=== PATIENT | male | born 1970 | race Hispanic/Latino ===

== ENCOUNTER 2018-10-07 16:09 | Inpatient (IN) | payer OTHER ==
[~2018-10-07] VITALS: Ht 170.2 cm; Wt 81.6 kg
[2018-10-07] MEDS ORDERED: ONDANSETRON HCL 4 MG/2 ML VIAL ONE (16:28)
[2018-10-07] MEDS ORDERED: ACETAMINOPHEN 325 MG TAB ONE (16:29)
[2018-10-07] MEDS ORDERED: SODIUM CHLORIDE 0.9% 1000ML 3,000 ML IV ONE (16:31)
[2018-10-07 16:37] LABS: BASOPHILS % (AUTO) 0.4 % (0.0-5.0); HEMATOCRIT 37.7 % (42-54); LYMPHOCYTES % (AUTO) 36.3 % (21.0-51.0); MEAN CORPUSCULAR HEMOGLOBIN 33.9 pg (27.0-33.0); MEAN CORPUSCULAR HGB CONC 35.2 g/dL (32.0-36.0); MEAN CORPUSCULAR VOLUME 96.3 fL (79-99); MONOCYTES % (AUTO) 8.7 % (3.0-13.0); NEUTROPHILS % (AUTO) 54.6 % (40.0-77.0); NUCLEATED RED BLOOD CELLS 0.1 % (0.0-0.19); PLATELET COUNT (AUTO) 97 K/uL (130-400); RED BLOOD CELL COUNT(AUTO) 3.91 MIL/uL (4.50-6.20); RED CELL DISTRIBUTION WIDTH 13.5 % (11.0-15.5); WHITE BLOOD COUNT (AUTO) 8.4 K/uL (4.8-10.8)
[2018-10-07] MEDS ORDERED: CEFTRIAXONE SODIUM 1 GM ONE (16:45)
[2018-10-07] MEDS ORDERED: AZITHROMYCIN 500MG+NS 250ML 250 ML IV ONE (16:46)
[2018-10-07 16:52] LABS: CREATININE 1.5 mg/dL (0.5-1.5)
[2018-10-07 16:57] LABS: ALBUMIN 2.4 g/dL (3.5-5.0); BILIRUBIN,TOTAL 5.5 mg/dL (0.2-1.0); TOTAL PROTEIN, SERUM 7.9 g/dL (6.0-8.3)
[2018-10-07 17:01] LABS: APPEARANCE,URINE Clear (CLEAR); BILIRUBIN,URINE Moderate (NEGATIVE); COLOR,URINE Dark Yellow (YELLOW); GLUCOSE, URINE (UA) Negative (NEGATIVE); KETONES,URINE Negative (NEGATIVE); LEUKOCYTE ESTERASE ,URINE Trace (NEGATIVE); NITRATE,URINE Negative (NEGATIVE); OCCULT BLOOD,URINE Moderate (NEGATIVE); PROTEIN,URINE POS 1+ mg/dL (NEGATIVE)
[2018-10-07 17:08] LABS: AMPHET/METH SCREEN,URINE NEGATIVE (NEGATIVE); BARBITURATE SCREEN, URINE NEGATIVE (NEGATIVE); BENZODIAZEPINES SCREEN,URINE NEGATIVE (NEGATIVE); CANNABINOID SCREEN,URINE POSITIVE (NEGATIVE); COCAINE SCREEN,URINE NEGATIVE (NEGATIVE); OPIATE SCREEN,URINE NEGATIVE (NEGATIVE); PHENCYCLIDINE SCREEN,URINE NEGATIVE (NEGATIVE)
[2018-10-07 17:08] LABS: TROPONIN I 0.06 ng/mL (0.00-0.06)
[2018-10-07 17:17] LABS: BACTERIA,URINE Rare /HPF (None Seen); RBC,URINE None Seen /HPF (0-1); SQUAMOUS EPITHELIAL CELL,UR None Seen /HPF (0-2); WBC,URINE 0-1 /HPF (0-1)
[2018-10-07 17:27] LABS: B-TYPE NATRIURETIC PEPTIDE 94 pg/mL (0-100)
[2018-10-07] MEDS ORDERED: ASPIRIN 81MG TAB.CHEW ONE (18:06)
[2018-10-07] MEDS ORDERED: POTASSIUM BICARB/CIT AC 25 MEQ TABLET.EFF ONE (19:07)
[2018-10-07] MEDS ORDERED: IOHEXOL-350 75 ML VIAL IV ONE (19:21)
[2018-10-07] MEDS ORDERED: ZOSYN 3.375GM+NS 50ML 50 ML IV ONE ×2 (20:15→20:23)
[2018-10-07] MEDS: SODIUM CHLORIDE 0.9% 1000ML 1,000 ML IV SCH (21:33)
[2018-10-07] MEDS ORDERED: MORPHINE SULFATE 2 MG/ML 1ML SYG IV PRN (21:45)
[2018-10-07] MEDS ORDERED: MORPHINE SULFATE 4 MG/1ML SYG IV PRN (21:45)
[2018-10-07] MEDS ORDERED: MORPHINE SULFATE 2 MG/ML 1ML SYG ONE (23:18)
[2018-10-07] MEDS ORDERED: SODIUM CHLORIDE 0.9% 1000ML 1,000 ML IV ONE (23:19)
[2018-10-08] VITALS (8 sets, daily range): BP systolic 140–177; BP diastolic 92–110
--- NOTE | 2018-10-08 01:00 | NUR ---
ADMIT PT ADMITTED TO ROOM 404,AAOX3. DENIES ANY PAINS AT THIS TIME. ADMISSION CARE DONE. ADMISSION DATA BASE COMPLETED. IVF OF NS FROM ER REGULATED AT 100CC/HR. PLACED PT NPO, PT VERBALIZES UNDERSTANDING OF DIETARY RESTRICTIONS. ORIENTED TO ROOM AND UNIT. ADMISSION PACKET AND CONSENT FOR MRCP SIGNED BY PT, WITNESSED BY AUTOMOTIVE INSTRUCTOR. IN FOR MORE CARE AND MANAGEMENT. Addendum: 10/08/18 at 0201 by ANCELMO POON RN RN Amended: Links added.
[2018-10-08] MEDS ORDERED: POTASSIUM CHLORIDE 20MEQ/100ML 100 ML IV PRN (01:45)
[2018-10-08] MEDS ORDERED: LIDOCAINE HCL-MPF 1% 2ML VIAL IVP PRN (01:45)
[2018-10-08] MEDS ORDERED: POTASSIUM CHLORIDE 20MEQ/100ML 100 ML IV ONE (03:23)
[2018-10-08] MEDS ORDERED: LIDOCAINE HCL-MPF 1% 2ML VIAL ONE (03:23)
[2018-10-08] MEDS ORDERED: ACETAMINOPHEN 325 MG TAB ONE (03:23)
[2018-10-08] MEDS ORDERED: ACETAMINOPHEN 325 MG TAB PO PRN (03:30)
--- NOTE | 2018-10-08 03:35 | NUR ---
FEVER PT'S DCLIZYKPCUE=972.9. WARM TO TOUCH. REMOVED EXTRA BLANKET. KEPT ROOM TEMPERATURE COOL. TATO GALO DOOR [employer]ITAL[employer] CALLED AND INFORMED OF PT'S CONDITION. NEW MED ORDER GIVEN. MEDICATED PT WITH TYLENOL PO AND STARTED ON IV POTASSIUM FOR COVERAGE PER PROTOCOL. WILL RE-ASSESS PT.
--- NOTE | 2018-10-08 04:38 | NUR ---
RE-CHECK PT'S TEMPERATURE RE-YBNEZMW=576.3. COLD PACKS APPLIED ON PT. KEPT ROOM TEMPERATURE COOL. REMOVED COVERS. KEPT COMFORTABLE. WILL MONITOR PT.
[2018-10-08] MEDS: ZOSYN 3.375GM+NS 50ML 50 ML IV SCH ×3 (05:05→20:17)
--- NOTE | 2018-10-08 09:03 | NUR ---
Pt wheeled to radiology by [employer] for planned MRCP. Pt in stable condition. Family in room.
[2018-10-08] MEDS: FAMOTIDINE/PF 20 MG/2 ML VIAL IV SCH ×2 (10:03→20:17)
[2018-10-08] MEDS: SODIUM CHLORIDE 0.9% 1000ML 1,000 ML IV SCH (10:04)
--- NOTE | 2018-10-08 10:30 | NUR ---
INIITIAL MET W PT ALONE, AAOX3, EMPLOYED, INDP OF ADLS, DRIVES, NO DME, NO MD FAXED CHANGES ON FACE SHEET TO REGISTRTION, DCP HOME, NO DC NEEDS ANTICIPATED, DISCUSSED [employer] [employer] JUAN SMITH TO FOLLOW Addendum: 10/08/18 at 1708 by NANCY BENZ RN CM Amended: Links added.
[2018-10-08 11:27] LABS: HEMATOCRIT 35.4 % (42-54); MEAN CORPUSCULAR HEMOGLOBIN 33.7 pg (27.0-33.0); MEAN CORPUSCULAR HGB CONC 34.5 g/dL (32.0-36.0); MEAN CORPUSCULAR VOLUME 97.7 fL (79-99); PLATELET COUNT (AUTO) 100 K/uL (130-400); RED BLOOD CELL COUNT(AUTO) 3.62 MIL/uL (4.50-6.20); RED CELL DISTRIBUTION WIDTH 14.1 % (11.0-15.5); WHITE BLOOD COUNT (AUTO) 7.5 K/uL (4.8-10.8)
[2018-10-08 11:35] LABS: CREATININE 1.2 mg/dL (0.5-1.5); POTASSIUM 3.4 mmol/L (3.5-5.1)
[2018-10-08 11:39] LABS: BILIRUBIN,TOTAL 5.7 mg/dL (0.2-1.0); TOTAL PROTEIN, SERUM 6.3 g/dL (6.0-8.3)
[2018-10-08 12:03] LABS: INR 1.14 (0.85-1.15); PROTHROMBIN TIME 11.9 SEC (9.6-11.6)
--- NOTE | 2018-10-08 12:03 | NUR ---
Notified Nuria Meyers of pt's elevated BP. Was 164/99, then 177/110 on recheck. No scheduled or PRN meds ordered at present. Awaiting new orders.
[2018-10-08] MEDS ORDERED: HYDRALAZINE HCL 20 MG/ML VIAL IM PRN (12:15)
[2018-10-08] MEDS ORDERED: METOPROLOL TARTRATE 25 MG TAB ONE (12:59)
[2018-10-08] MEDS ORDERED: HYDRALAZINE HCL 20 MG/ML VIAL ONE (13:00)
[2018-10-08] MEDS ORDERED: NS-20 MEQ KCL 1000ML 1,000 ML IV SCH (13:30)
[2018-10-08] MEDS ORDERED: HYDRALAZINE HCL 20 MG/ML VIAL IM SCH (13:55)
[2018-10-08] MEDS ORDERED: METOPROLOL TARTRATE 25 MG TAB PO SCH (13:55)
--- NOTE | 2018-10-08 14:56 | NUR ---
Dr. Stone in room for rounds with pt. Rec'd orders for clear liquid diet and repeat labs in the am. Nurse was notified by Chatwala that isotope is not available for HIDA today, also that pt must be 24 hours free from narcotics (took morphine last night). states okay to wait til am for HIDA.
[2018-10-08] MEDS: HYDRALAZINE HCL 20 MG/ML VIAL IV PRN ×2 (17:51→23:55)
--- NOTE | 2018-10-08 17:53 | NUR ---
REPEAT BP 170/108 MANUALLY. NOTIFIED Candy ARTEAGA NP. REC'D ORDER TO GIVE ADDITIONAL DOSE OF HYDRALAZINE 10 MG IV X 1 NOW. ORDERS HONORED.
[2018-10-08] MEDS: METOPROLOL TARTRATE 25 MG TAB PO SCH (20:17)
[2018-10-09] VITALS: BP 171/105
[2018-10-09 02:20] VITALS: BP 147/92
[2018-10-09 04:32] LABS: HEMATOCRIT 32.2 % (42-54); MEAN CORPUSCULAR HEMOGLOBIN 34.2 pg (27.0-33.0); MEAN CORPUSCULAR HGB CONC 35.5 g/dL (32.0-36.0); MEAN CORPUSCULAR VOLUME 96.4 fL (79-99); PLATELET COUNT (AUTO) 125 K/uL (130-400); RED BLOOD CELL COUNT(AUTO) 3.34 MIL/uL (4.50-6.20); WHITE BLOOD COUNT (AUTO) 9.3 K/uL (4.8-10.8)
[2018-10-09 05:13] LABS: ALBUMIN 1.9 g/dL (3.5-5.0); BILIRUBIN,TOTAL 5.9 mg/dL (0.2-1.0); POTASSIUM 3.4 mmol/L (3.5-5.1); TOTAL PROTEIN, SERUM 6.2 g/dL (6.0-8.3)
[2018-10-09] MEDS: ZOSYN 3.375GM+NS 50ML 50 ML IV SCH ×3 (05:19→20:03)
[2018-10-09 07:42] VITALS: BP 160/104
[2018-10-09] MEDS: METOPROLOL TARTRATE 25 MG TAB PO SCH ×2 (09:46→20:03)
[2018-10-09] MEDS: FAMOTIDINE/PF 20 MG/2 ML VIAL IV SCH ×2 (09:46→20:03)
[2018-10-09] MEDS ORDERED: POTASSIUM CHLORIDE 20MEQ/100ML 100 ML IV PRN (10:00)
[2018-10-09] MEDS ORDERED: LIDOCAINE HCL-MPF 1% 2ML VIAL IVP PRN (10:00)
[2018-10-09] MEDS ORDERED: POTASSIUM CHLORIDE 10% ELIXIR 20 MEQ/15 ML UDCUP PO PRN (10:00)
[2018-10-09 11:01] VITALS: BP 151/105
[2018-10-09] MEDS: POTASSIUM CHLORIDE 20 MEQ ERTAB PO PRN ×2 (13:20→13:21)
[2018-10-09] MEDS ORDERED: METOPROLOL TARTRATE 25 MG TAB PO SCH (15:20)
[2018-10-09] MEDS ORDERED: POTASSIUM CHLORIDE 20 MEQ ERTAB PO SCH (15:20)
[2018-10-09 15:54] VITALS: BP 159/102
[2018-10-09] MEDS: SODIUM CHLORIDE 0.9% 1000ML 1,000 ML IV SCH (16:26)
--- NOTE | 2018-10-09 19:25 | NUR ---
CONSULT DR PALENCIA IN TO SEE PT. NEW ORDERS GIVEN, PLEASE REFER TO CPOE. Addendum: 10/10/18 at 0046 by ANCELMO POON RN RN Amended: Links added.
[2018-10-09 20:00] VITALS: BP 173/108
[2018-10-09] MEDS: POTASSIUM CHLORIDE 20 MEQ ERTAB PO SCH (20:04)
--- NOTE | 2018-10-09 20:05 | NUR ---
REFUSED PT VERBALIZES REFUSAL FOR EGD WITH MAC SCHEDULED BY DR PALENCIA. PT VERBALIZES UNDERSTANDING OF PROCEDURE AND REASON WHY MD SCHEDULED PROCEDURE BUT STILL REFUSED. REFUSAL FORM SIGNED BY PT. SHIFT ASSESSMENT DONE, PLEASE REFER TO CHART. DUE MEDS ADMINISTERED, TOLERATED WELL. KEPT RESTED AND COMFORTABLE. RESOURCE NURSE WAS INFORMED OF REFUSAL. CALLED DR PALENCIA AND INFORMED. SCHEDULED PROCEDURE CANCELLED. Addendum: 10/10/18 at 0058 by ANCELMO POON RN RN Amended: Links added.
[2018-10-10 00:14] VITALS: BP 149/93
--- NOTE | 2018-10-10 02:00 | NUR ---
ROUNDS PT FAIRLY ASLEEP WITH RESPIRATIONS EVEN AND UNLABORED. NO DISTRESS NOTED. KEPT UNDISTURBED FOR NOW. WILL MONITOR PT.
[2018-10-10] MEDS: SODIUM CHLORIDE 0.9% 1000ML 1,000 ML IV SCH ×2 (03:08→04:53)
[2018-10-10 04:00] VITALS: BP 160/93
[2018-10-10] MEDS: ZOSYN 3.375GM+NS 50ML 50 ML IV SCH (04:18)
--- NOTE | 2018-10-10 04:53 | NUR ---
ROUNDS PT VERBALIZES THAT HE NEEDS TO BE DISCHARGED. EXPLAINED TO PT THAT MD WILL BE ROUNDING IN A FEW HOURS AND PT CAN ASK THEN IF HE COULD GO HOME. PT AGREEABLE AND DUE MEDS AND NEW IVF BAG HUNG. DOCTOR PODIATRIC MEDICINE IN TO DRAW BLOOD. FOR MORE CARE.
[2018-10-10 05:42] LABS: HEMATOCRIT 32.4 % (42-54); MEAN CORPUSCULAR HEMOGLOBIN 34.4 pg (27.0-33.0); MEAN CORPUSCULAR HGB CONC 35.2 g/dL (32.0-36.0); MEAN CORPUSCULAR VOLUME 97.9 fL (79-99); NUCLEATED RED BLOOD CELLS 0.1 % (0.0-0.19); PLATELET COUNT (AUTO) 144 K/uL (130-400); RED BLOOD CELL COUNT(AUTO) 3.31 MIL/uL (4.50-6.20); RED CELL DISTRIBUTION WIDTH 14.4 % (11.0-15.5); WHITE BLOOD COUNT (AUTO) 8.8 K/uL (4.8-10.8)
[2018-10-10 05:51] LABS: ALBUMIN 1.9 g/dL (3.5-5.0); BILIRUBIN,TOTAL 5.4 mg/dL (0.2-1.0); POTASSIUM 3.4 mmol/L (3.5-5.1); TOTAL PROTEIN, SERUM 6.5 g/dL (6.0-8.3)
[2018-10-10] MEDS: POTASSIUM CHLORIDE 20 MEQ ERTAB PO PRN ×2 (05:59→08:41)
[2018-10-10 07:30] VITALS: BP 158/109
[2018-10-10] MEDS: METOPROLOL TARTRATE 25 MG TAB PO SCH (08:40)
[2018-10-10] MEDS: POTASSIUM CHLORIDE 20 MEQ ERTAB PO SCH (08:41)
[2018-10-10] MEDS: FAMOTIDINE/PF 20 MG/2 ML VIAL IV SCH (08:41)
[2018-10-10] MEDS ORDERED: FAMO-136 PO (09:03)
[2018-10-10] MEDS ORDERED: METO25 PO (09:03)
[2018-10-10] MEDS ORDERED: POTASSIUM CHLORIDE 20 MEQ ERTAB PO SCH (10:00)
== END 2018-10-10 09:55 | disposition home or self-care (01) | DRG 872 ==
LOC: EDH 16:09 → EDHIP 16:10 → 4AH 22:45
PROVIDERS: ADMIT Internal Medicine; ATTEND Internal Medicine
DX: A41.9 Sepsis, unspecified organism (principal); K81.0 Acute cholecystitis; E87.6 Hypokalemia; D64.9 Anemia, unspecified; D69.59 Other secondary thrombocytopenia; D73.1 Hypersplenism; F10.10 Alcohol abuse, uncomplicated; I10 Essential (primary) hypertension; K82.8 Other specified diseases of gallbladder; K70.10 Alcoholic hepatitis without ascites; F12.90 Cannabis use, unspecified, uncomplicated; K29.80 Duodenitis without bleeding; K29.70 Gastritis, unspecified, without bleeding; R79.89 Other specified abnormal findings of blood chemistry; R16.2 Hepatomegaly with splenomegaly, not elsewhere classified; R74.8 Abnormal levels of other serum enzymes; Z83.3 Family history of diabetes mellitus; Z82.49 Family history of ischemic heart disease and other diseases of the circulatory system
CPT/HCPCS: 36415; 71045; 74177; 74181; 78227; 80053; 80305; 81001; 82150; 82550; 83605; 83690; 83874; 83880; 84132; 84484; 85025; 85027; 85610; 85730; 87040; 87804; 93005; A9537; G0378; G0480; J0360; J0456; J0696; J2405; J2543; J3480; J3490; J7030; Q9967